=== PATIENT | male | born 1985 | race Hispanic/Latino ===

== ENCOUNTER 2016-10-15 03:47 | Emergency (ER) | payer OTHER ==
[~2016-10-15] VITALS: Ht 165.1 cm; Wt 65.8 kg
--- NOTE | 2016-10-15 04:04 | ED CARDIAC/CP/PALPITATIONS ---
History of Present Illness General Chief Complaint: Chest Pain Stated Complaint: CP Source: patient, old records, EMS Exam Limitations: no limitations Vital Signs & Intake/Output Vital Signs & Intake/Output Vital Signs Date Time Temp Pulse Resp B/P Pulse O2 O2 Flow FiO2 Ox Delivery Rate 10/15 0648 97.2 56 20 119/69 100 Room Air 10/15 0353 96.0 70 20 121/73 99 Room Air Allergies Coded Allergies: No Known Allergies (10/15/16) Triage Note: PT BIBA C/O MIDSTERNAL AND LEFT CHEST WALL PAIN. PT STATES HE WAS EXPERIENCING PRESSURE IN CHEST, AND A RACING HEART. PT ALSO STATED THAT HE STARTED TO HAVE L ARM NUMBNESS. PT WASNT SURE IF IT WAS ANXIETY ATTACK. CP STARTED AROUND 2100 LAST NIGHT. PT ADMITS TO COCAINE USE AROUND 1400 YESTERDAY. Triage Nurses Notes Reviewed? yes Onset: Evening Duration: hour(s): (6), constant, continues in ED Timing: recent history Quality/Severity: moderate, aching, pressure Location: central Radiation: arms Activities at Onset: rest Prior Chest Pain/Card Workup: no prior chest pain Nitro Today/Relief: no nitro taken today Aspirin Today: no aspirin today Associated Symptoms: anxiety HPI: 14 hours prior to admission patient admits to using cocaine. 6 hours prior to admission patient developed substernal aching chest pain constant radiating to the left arm associated with anxiety. Denies fever chills nausea vomiting diarrhea abdominal pain shortness of breath headache dysuria rash bleeding. Past History Travel History Traveled to [place] past 21 day No Medical History Any Pertinent Medical History? see below for history Respiratory: asthma Psychiatric: anxiety, bipolar disease, schizophrenia Surgical History Surgical History: non-contributory Psychosocial History What is your primary language Guinean Tobacco Use: Current Daily Use Daily Tobacco Use Amount/Type: => 5 Cigarettes daily ETOH Use: occasional use Illicit Drug Use: cocaine Family History Hx Contributory? No Review of Systems Review of Systems Constitutional: Reports: no symptoms. EENTM: Reports: no symptoms. Respiratory: Reports: no symptoms. Cardiovascular: Reports: see HPI, chest pain. GI: Reports: no symptoms. Genitourinary: Reports: no symptoms. Musculoskeletal: Reports: no symptoms. Skin: Reports: no symptoms. Neurological/Psychological: Reports: no symptoms. Hematologic/Endocrine: Reports: no symptoms. Immunologic/Allergic: Reports: no symptoms. All Other Systems: Reviewed and Negative Physical Exam Physical Exam General Appearance: well developed/nourished, alert, awake, anxious, mild distress, thin Head: atraumatic, normal appearance Eyes: Bilateral: normal appearance, PERRL, EOMI. Ears, Nose, Throat: normal pharynx, normal ENT inspection Neck: normal inspection, supple, full range of motion, no midline tenderness Respiratory: normal breath sounds, chest non-tender, no respiratory distress, quiet respiration, lungs clear Cardiovascular: regular rate/rhythm, normal peripheral pulses, norml femoral pulses equa Peripheral Pulses: 4+ carotid (R), 4+ carotid (L) Gastrointestinal: normal bowel sounds, soft, non-tender, no organomegaly Back: normal inspection, normal range of motion Extremities: normal inspection, normal capillary refill, normal range of motion, no edema Neurologic/Psych: no motor/sensory deficits, awake, alert, oriented x 3, normal gait, normal mood/affect, pattern hanger II-XII nml as tested Reflexes: 2+: bicep (R), bicep (L). Skin: intact, normal color, warm/dry Lymphatic: no anterior cervical ingris Core Measures ACS in differential dx? No Severe Sepsis Present: No Septic Shock Present: No Progress Differential Diagnosis: AMI, hyperkalemia, hypovolemia, hyperthyroid, myocarditis, pericarditis, pneumonia Plan of Care: Orders Procedure Date/time Status EKG 10/15 043 Active TOTAL TRIODOTHYROXINE 10/16 419 Complete FREE T4 10/16 419 Complete TSH REFLEX 10/15 402 Complete TROPONIN LEVEL 10/15 402 Complete COMPREHENSIVE METABOLIC PANEL 10/15 402 Complete CBC WITHOUT DIFFERENTIAL 10/15 402 Complete EKG 10/15 402 Active Laboratory Tests 10/15/16 0420: Anion Gap 10, Estimated GFR > 60, BUN/Creatinine Ratio 10.8, Glucose 103 H, Calcium 10.9 H, Total Bilirubin 1.2, AST 25, ALT 29, Alkaline Phosphatase 56, Troponin I < 0.01, Total Protein 7.4, Albumin 4.3, Globulin 3.1, Albumin/ Globulin Ratio 1.4, Free T4 1.42, Total T3 1.88 H, TSH &T3 &Free T4 Intrp 6.070 H, CBC w Diff NO MAN DIFF REQ, RBC 4.61 L, MCV 88.9, MCH 29.7, RDW 13.8, MPV 8.6, Gran % 75.7 H, Lymphocytes % 17.2 L, Monocytes % 6.6, Eosinophils % 0.3, Basophils % 0.2, Absolute Granulocytes 7.3 H, Absolute Lymphocytes 1.7, Absolute Monocytes 0.6, Absolute Eosinophils 0, Absolute Basophils 0, PUBS MCHC 33.5 Diagnostic Imaging: Viewed by Me: Radiology Read. Discussed w/RAD: Radiology Read. Initial ED EKG: normal axis, normal intervals, normal p-waves, normal sinus rhythm, ST elevation (vs pr depression diffusely) Rhythm Strip: normal sinus rhythm Departure Departure Time of Disposition: 652 Disposition: HOME OR SELF CARE Condition: Stable Clinical Impression Primary Impression: Pericarditis Qualifiers: Pericarditis type: unspecified type Chronicity: acute Qualified Code: I30.9 - Acute pericarditis, unspecified Secondary Impressions: Chest pain syndrome Referrals: EDUARDO BONILLA,MIAH Joshua Follow up for abnormal thyroid testing. Departure Forms: Customer Survey General Discharge Information Critical Care Note Critical Care Note Critical Care Time: non-applicable
[2016-10-15 04:34] LABS: ABSOLUTE BASOPHIL COUNT 0 /CUMM (0.0-0.2); ABSOLUTE EOSINOPHIL COUNT 0 /CUMM (0.0-0.7); ABSOLUTE GRANULOCYTE CT 7.3 /CUMM (1.4-6.5); ABSOLUTE LYMPH COUNT 1.7 /CUMM (1.2-3.4); ABSOLUTE MONOCYTE COUNT 0.6 /CUMM (0.10-0.60); BASOPHIL % 0.2 % (0.0-2.0); EOSINOPHIL % 0.3 % (0-5); GRANULOCYTE % 75.7 % (42.2-75.2); HEMATOCRIT 40.9 % (42-52); MEAN CORPUSCULAR HGB 29.7 PG (27.0-31.0); MEAN CORPUSCULAR HGB CONC 33.5 G/DL (33.0-37.0); MEAN CORPUSCULAR VOLUME 88.9 FL (80.0-94.0); MEAN PLATELET VOLUME 8.6 FL (7.4-10.4); PLATELET COUNT 209 /CUMM (130-400); RBC DISTRIBUTION WIDTH 13.8 % (11.5-14.5); RED BLOOD CELL CT 4.61 /CUMM (4.70-6.10); WHITE BLOOD CELL COUNT 9.7 /CUMM (4.8-10.8)
--- NOTE | 2016-10-15 05:31 | RADIOLOGY REPORT ---
EXAMINATION: CHEST 1 VIEW CLINICAL INFORMATION: Chest pain. COMPARISON: None. TECHNIQUE: An AP view of the chest is provided. FINDINGS: The cardiac silhouette is not enlarged. The mediastinal and hilar contours are unremarkable. There are neither pleural effusions nor pneumothoraces. There are no consolidations. The osseous structures are unremarkable. IMPRESSION: No evidence for acute disease.
[2016-10-15 06:48] VITALS: BP 119/69
[2016-10-15] MEDS ORDERED: IBUPROFEN600 M1 PO (06:55)
== END 2016-10-15 07:03 ==
LOC: ERH 03:47
PROVIDERS: Emergency Medicine
DX: I31.9 Disease of pericardium, unspecified (principal); R07.1 Chest pain on breathing; F41.9 Anxiety disorder, unspecified; F14.10 Cocaine abuse, uncomplicated
CPT/HCPCS: 93005; 93010; 96374; J1885